=== PATIENT | male | born 1930 | race Caucasian/White ===

== ENCOUNTER 2016-09-11 11:27 | Emergency (ER) | payer BC, MEDICARE ==
[2016-09-11] MEDS ORDERED: OPTIRAY 350 100 ML VIAL HMH IV ONE (11:28)
[2016-09-11] MEDS ORDERED: ONDANSETRON 4 MG VIAL ONE (12:36)
[2016-09-11] MEDS ORDERED: SODIUM CHLORIDE 0.9% 1,000 ML ONE (14:20)
[2016-09-11] MEDS ORDERED: DUONEB INH ONE (15:28)
[2016-09-11] MEDS ORDERED: ALBUTEROL HFA INH ONE (17:05)
== END 2016-09-11 17:50 | disposition home or self-care (01) ==
LOC: ER 11:27
DX: R10.13 Epigastric pain (principal); R11.2 Nausea with vomiting, unspecified; Z79.899 Other long term (current) drug therapy; I10 Essential (primary) hypertension; Z95.0 Presence of cardiac pacemaker; Z87.891 Personal history of nicotine dependence
CPT/HCPCS: 36415; 74022; 74177; 80053; 81001; 82274; 83690; 85025; 93005; 94640; 96361; 96374